=== PATIENT | female | born 1990 | race Caucasian/White ===

== ENCOUNTER 2020-01-07 12:05 | Outpatient (CLI) | payer OTHER, SELFPAY ==
[2020-01-07 12:17] VITALS: BMI 31.1
[2020-01-07 13:16] LABS: ROM Internal Control Test YES-OK TO RESULT pt. (Internal QC); ROM Patient Test Negative (Negative)
[2020-01-07 13:56] VITALS: BP 119/64; PULSE 100
--- NOTE | 2020-01-07 16:28 | OB.TRI.NOTE ---
History of Present Illness Was patient seen by the physician?: No Reason For Visit: RULE OUT LABOR Date of Service: 01/07/20 Final SANAM: 01/09/20 Gestational age: 39 Weeks and 5 Days Allergies grey Allergy (Verified 01/07/20 12:19) Hives Penicillins Allergy (Verified 01/07/20 12:18) Hives amoxicillin Adverse Reaction (Verified 01/07/20 12:19) Hives Laboratory Studies: Laboratory Tests 01/07/20 Range/Units 12:40 Vag Amniotic Fld Detect Negative (Negative) Physical Exam Vitals: Vital Signs Pulse BP 100 119/64 01/07/20 13:56 01/07/20 13:56 NST - FHR Rate Baby A Baseline: 125 Variability:: Moderate Accelerations:: 15 x 15 NST Reactive:: Yes Uterine Activity:: quiet Impression/Plan Reactive NST for false labor
== END 2020-01-07 13:57 | disposition home or self-care (01) ==
LOC: WPOUT 12:09 → OBT 12:10
PROVIDERS: PCP Otolaryngology; Visit Provider Obstetrics & Gynecology
DX: O47.1 False labor at or after 37 completed weeks of gestation (principal); Z3A.39 39 weeks gestation of pregnancy
CPT/HCPCS: 59025; 59050; 84112; 99218; G0378

== ENCOUNTER → 2020-01-10 10:17 | Outpatient (CLI) | payer OTHER, SELFPAY ==
[2020-01-07 12:17] VITALS: BMI 31.1
== END ==
PROVIDERS: PCP Otolaryngology; Referring Provider Advanced Practice Midwife; Visit Provider Advanced Practice Midwife
DX: Z11.59 Encounter for screening for other viral diseases (principal)
CPT/HCPCS: 87635; C9803; U0003

== ENCOUNTER 2020-01-16 07:00 | Inpatient (IN) | payer OTHER, SELFPAY ==
[2020-01-16] VITALS (54 sets, daily range): BP systolic 82–127; BP diastolic 49–72; PULSE 75–108; TEMP 36.4–37.6; O2SAT 96–100; BMI 31.8
--- NOTE | 2020-01-16 07:23 | PCM.HP.OB ---
- Problem List (1) 41 weeks gestation of Status: Acute (2) Primiparity Status: Acute (3) Positive GBS test Status: Acute (4) Rh negative state in antepartum period Status: Acute History Date of Admission: 01/16/20 Final SANAM: 01/09/20 Gestational age: 41 Weeks and 0 Days History of this : This is a 29 year-old, G 1, P 0, at 41 weeks gestational age who is admitted for induction of labor given 41 wk gestational age. Allergies grey Allergy (Verified 01/07/20 12:19) Hives Penicillins Allergy (Verified 01/07/20 12:18) Hives amoxicillin Adverse Reaction (Verified 01/07/20 12:19) Hives Home Medications: Home Medications 105/Iron/Folic AC/Dha tab PO DAILY 01/07/20 Smoking Status: Never smoker Alcohol: None Number of Fetus(es): 1 History Past Pregnancies: Past Pregnancies Delivery Date Name GA/ Weeks Outcome Route Wt Infant Sex Labor Length Anesthesia Delivery Location Provider FOB Physical Exam General: Alert, No apparent distress HEENT: Atraumatic Abdomen: Soft, Gravid Extremities:: No edema Neurological: Neuro grossly intact DEVELOPMENT CHEMIST: Normal external genitalia Estimated gestational size: Appropriate for gestational size Presentation: Cephalic Cervix Dilation (cm): 4 - per exam in office Assessment/Plan All Active Problems 41 weeks gestation of (Acute) Primiparity (Acute) Positive GBS test (Acute) Rh negative state in antepartum period (Acute) This is a 29 year-old, G 1, P 0, at 41 weeks gestational age who presents for scheduled IOL for 41 wk gestation. - Routine intrapartum care - Pitocin - Epidural PRN - GBS positive, Vancomycin given sensitivities - Adequate pelvis and EFW expected to be < 4500 g, anticipate
[2020-01-16] MEDS: Lactated Ringers 1,000 ML 50 ML IV (07:50)
[2020-01-16] MEDS: Oxytocin 30 units/NS 500 ml 30 UNITS/500 ML IV.SOLN IV (08:00)
[2020-01-16 08:12] LABS: Absolute Lymphocyte Count 1.51 X10^3/uL (0.83-4.51); Absolute Neutrophil Count 6.4 X10^3/uL (2.0-7.7); Basophil# 0.02 X10^3/uL; Basophil% 0.2 % (0-1); Eosinophil# 0.09 X10^3/uL; Eosinophils% 1.1 % (0-5); Hematocrit 35.1 % (37-47); Lymphocyte # 1.51 X10^3/ul (4.0); Lymphocyte % 17.8 % (19-41); Mean Corp Hgb Conc 34.2 g/dL (32-36); Mean Corpuscular Hgb 32.3 pg (27.0-32.0); Mean Corpuscular Volume 94.4 fL (81-99); Mean Platelet Vol. 11.9 fl (6.2-12.0); Monocyte# 0.37 X10^3/uL; Monocyte% 4.4 % (0-10); NRBC Flagged by Analyzer 0 % (0-5); Neutrophil # 6.36 X10^3/uL (2.7-7.7); Neutrophil % 75.2 % (47-70); Platelet Count 139 K/mm3 (150-450); RBC Distribution Width CV 13.3 % (11.6-14.6); RBC Distribution Width SD 45.4 fl (35.1-43.9); Red Blood Count 3.72 M/mm3 (4.2-5.4); White Blood Count 8.5 K/mm3 (4.4-11.0)
[2020-01-16 09:04] LABS: Anion Gap 7 (5-15); BUN 8 mg/dL (7-18); BUN/Creat Ratio 13.7 RATIO (10-20); Calcium,Total 8.8 mg/dL (8.5-10.1); Chloride 110 mmol/L (98-107); Creatinine, Serum 0.58 mg/dL (0.55-1.02); EST Glomerular Filtration Rate 131 mL/min (>60); Est Glom Filt Rate - Afr Amer 159 mL/min (>60); Estimated Creatinine Clearance 120.52 ml/min; Glucose 114 mg/dL (74-106); Potassium 3.3 mmol/L (3.5-5.1); Sodium Level 139 mmol/L (136-145)
[2020-01-16] MEDS: DiphenhydrAMINE 25 MG Capsule 50 MG PO (10:35)
[2020-01-16] MEDS: Lactated Ringers 500 ML 999 ML IV ×2 (11:10→12:33)
[2020-01-16] MEDS: fentaNYL-bupivacaine (epidural) 100 ML BAG EPIDURAL ×2 (12:05→16:32)
--- NOTE | 2020-01-16 12:54 | PCM.PN.BLA ---
Progress Note Pt comfortable with epidural. Cvx /-2, head well applied. AROM performed in usual fashion with return of clear fluid. Category 1 tracing STROKE Vital Signs/Narrative: Vital Signs Temp Pulse BP Pulse Ox 01/16/20 12:52 98.4 F 01/16/20 12:38 96 91/53 L 01/16/20 12:34 98 94/55 L 01/16/20 12:33 97 98 01/16/20 12:29 88 82/49 L 01/16/20 12:28 100 84/51 L 99 01/16/20 12:23 98 90/52 L 99 01/16/20 12:20 90 92/53 L 01/16/20 12:18 87 98 01/16/20 12:15 90 93/51 L 01/16/20 12:13 97 98 01/16/20 12:09 100 95/52 L 01/16/20 12:08 98 99 01/16/20 12:04 100 99/56 L 01/16/20 12:03 99 98 01/16/20 12:00 85 97/58 L 01/16/20 11:58 84 99 01/16/20 11:55 99.1 F 01/16/20 11:54 82 107/60 01/16/20 11:53 98 01/16/20 11:48 90 97 01/16/20 11:00 99.7 F H 75 108/65 01/16/20 09:29 99.1 F 94 103/56 L
[2020-01-16] MEDS: Ondansetron 4 MG/2 ML Vial IV (16:43)
[2020-01-16] MEDS: 0.9% Saline Lock 10 ML Syringe IV ×2 (16:44→18:55)
[2020-01-16] MEDS: proCHLORPERazine 10 MG/2 ML Vial IV (18:55)
[2020-01-16] MEDS: Oxytocin 30 units/NS 500 ml 30 UNITS/500 ML IV.SOLN 334 UNITS IV (22:02)
--- NOTE | 2020-01-16 22:26 | PCM.OPRPT ---
Problem List (1) 41 weeks gestation of Status: Acute (2) Primiparity Status: Acute (3) Positive GBS test Status: Acute (4) Rh negative state in antepartum period Status: Acute Report of Operation Date of Procedure: 01/16/20 Pre-Operative Diagnosis: 41 week gestation, primiparous patient Post-Operative Diagnosis: As above Surgery/Procedure Performed:: Description of Surgical Findings:: Infant in occiput anterior position. Thick meconium present at time of delivery. Intact and normal-appearing placenta with three-vessel cord. Type of Anesthesia:: Epidural Special Medications: None Specimen's removed: Placenta Drains: Stanley Estimated Blood Loss (mL): 250 Description of Procedure: Patient complete and pushing. Head of infant delivered in occiput anterior position followed by anterior shoulder, posterior shoulder, body of infant without any force or delay. Viable female infant delivered atraumatically and placed on maternal abdomen. The cord was clamped and cut immediately by the father of the baby. Cord blood was obtained. The placenta delivered spontaneously and was noted to be normal and intact with a three-vessel cord. The uterus was explored x1. A second-degree perineal laceration was repaired with 3-0 Vicryl in usual fashion. A right labial laceration was repaired with 3-0 Vicryl as well. Fundus was firm and bleeding hemostatic. Instrument, sponge, needle counts were correct. Vaginal sweep was performed. Grafts/Implants Used: None - Complications None - Admit VTE Documentation VTE Present on Admission: No VTE Mechan Device Prophylaxis: None VTE Pharm Prophylaxis ordered?: No Vaginal Delivery Maternal Presentation: Medically Indicated Induction Method of Induction: Pitocin, Amniotomy Medical Reason for Induction: Post term Amniotic Membrane Rupture Type: Artificial Amniotic Fluid Description: Clear - at time of AROM, Thick meconium - At time of delivery Surgery/ Procedure Performed: Spontaneous Vaginal Delivery Type of Anesthesia: Epidural Presentation: Vertex Placental Delivery Description: Spontaneous Cord Entanglement: None A gender: Female (1 minute): 8 (5 minute): 8 Episiotomy Description: None Laceration: 2nd degree Medications given after delivery: IV Pitocin Complications: None
[2020-01-17] VITALS (9 sets, daily range): BP systolic 99–127; BP diastolic 68–71; PULSE 96–117; RESP 16; TEMP 36.4–36.8; O2SAT 98
[2020-01-17] MEDS: Acetaminophen 500 MG Tablet 1000 MG PO ×2 (00:35→08:45)
[2020-01-17] MEDS: Ibuprofen 600 MG Tablet PO (04:43)
--- NOTE | 2020-01-17 08:18 | PN.OBGYN_ITS ---
Patient Problems: Active and Suspected Problems 41 weeks gestation of (Acute) Primiparity (Acute) Positive GBS test (Acute) Rh negative state in antepartum period (Acute) Subjective: Patient seen at bedside. Stated was able to get sleep last night. Denies any pain. Ambulating and voiding without difficulty. Pumping due to infant being at [facility] main. Patient requesting discharge as soon as possible to be with daughter. - Physical Exam Vitals/I&O's: Vital Signs Temp Pulse Resp BP Pulse Ox 97.9 F 115 H 16 127/69 H 97 01/17/20 04:01 01/17/20 04:01 01/17/20 04:00 01/17/20 04:01 01/16/20 23:17 Oxygen Delivery Method Room Air Weight: 179 lb 10.828 oz Body Mass Index (BMI) 31.8 Intake and Output for Last 24 Hours 01/15/20 01/16/20 01/17/20 23:59 23:59 23:59 Intake Total 4594.03 / 4594.03 333 / 333 Output Total 900 / 900 Balance 3694.03 / 3694.03 333 / 333 General: Alert, Oriented x3, Cooperative Oral: Moist Mucosa Lungs: Normal air movement Cardiovascular: Regular rate Abdomen: Soft, Non Tender, Non-Distended, Passing Flatus Skin: No rashes Neurological: Cranial nerves II-XII grossly intact Psych/Mental Status: Normal Affect, Appropriate Laboratory Results 01/16/20 07:50: Blood Type O NEGATIVE, Antibody Screen NEGATIVE 01/16/20 08:15: Sodium 139, Potassium 3.3 L, Chloride 110 H, Carbon Dioxide 22.0, Anion Gap 7, BUN 8, Creatinine 0.58, Estim Creat Clear Calc 120.52, Est GFR (MDRD) Af Amer 159, Est GFR (MDRD) Non-Af 131, BUN/Creatinine Ratio 13.7, Glucose 114 H, Calcium 8.8 01/17/20 00:05: Screen NEGATIVE, Baby's Blood Type O POSITIVE, Baby's LINDA NEGATIVE Current Medications Acetaminophen (Tylenol) 1,000 mg PO Q8H PRN PRN PRN Reason: Pain Score 1-3/10 Last Admin: 01/17/20 00:35 Dose: 1,000 mg Documented by: Bisacodyl (Dulcolax) 10 mg RECTAL UD PRN PRN Reason: If no BM Dibucaine (Dibucaine) 1 applic TOPICAL TID PRN PRN; Protocol PRN Reason: Discomfort Hydrocortisone (Hytone) 1 applic TOPICAL TID PRN PRN; Protocol PRN Reason: Discomfort Ibuprofen (Motrin) 600 mg PO Q6H PRN PRN PRN Reason: Pain Score 1-3/10 Last Admin: 01/17/20 04:43 Dose: 600 mg Documented by: Methylergonovine Maleate (Methergine) 0.2 mg IM X1 PRN PRN Reason: Excess bleeding/uterine atony Ondansetron HCl (Zofran) 4 mg IV Q4H PRN PRN PRN Reason: Nausea Senna/Docusate Sodium (Senokot-S, Nicky-Colace) 1 - 2 tablet PO DAILY PRN PRN PRN Reason: Constipation Simethicone (Mylicon) 80 mg PO PCHS PRN PRN Reason: Indigestion/Stomach pain Sodium Chloride () 5 - 15 ml IV UD PRN PRN Reason: SALINE FLUSH Medical Necessity - Tobacco Use Smoking Status: Never smoker Assessment/Plan All Active Problems 41 weeks gestation of (Acute) Primiparity (Acute) Positive GBS test (Acute) Rh negative state in antepartum period (Acute) PPD #1 - 2nd degree laceration Routine care Pain controlled Discharge home
--- NOTE | 2020-01-17 08:21 | DCINST_ITS ---
Discharge Diet: No Restrictions Discharge Activity: Return to Normal Activity May resume sexual activity in: 6-8 weeks Additional Instructions: If you experience any of the following, contact your healthcare provider. * Bleeding that soaks a pad every hour for 2 hours * Fever 100.4 or higher * Unrelieved incision or abdominal pain * Swelling, redness, discharge or bleeding from your incision or episiotomy site * Your incision begins to separate * Problems urinating (including inability to urinate or burning while urinating). * Visual changes * Severe headache * Flu-like symptoms * Pain or redness in one of both of your breasts * Pain, warmth, tenderness or swelling in your legs, especially the calf area * Frequent nausea and vomiting * Symptoms of depression or anxiety If you experience any of the following, call 911 or go to the nearest Emergency Room. * Chest pain * Problems breathing * Seizure activity * Partial or complete paralysis of a body part, slurred speech, weakness or drooping of the face, or a sudden inability to walk or hold your balance Allergies/Adverse Reactions: Allergies grey Allergy (Verified 01/07/20 12:19) Hives Penicillins Allergy (Verified 01/07/20 12:18) Hives amoxicillin Adverse Reaction (Verified 01/07/20 12:19) Hives Medications to take at Discharge 105/Iron/Folic AC/Dha 1 tab PO DAILY 01/07/20 Please Follow Up With: Katie Law CNM When: 2 weeks virtual/ 6 weeks in office Primary Care Physician: Sánchez Davalos MD [Primary Care Provider] - Test Results: Test results from this visit will be discussed in further detail at your follow- up appointment, if applicable. Proposed Discharge Date: 01/17/20
--- NOTE | 2020-01-17 08:21 | PCM.DCVAG ---
Discharge Diet: No Restrictions Discharge Activity: Return to Normal Activity May resume sexual activity in: 6-8 weeks Additional Instructions: If you experience any of the following, contact your healthcare provider. Bleeding that soaks a pad every hour for 2 hours Fever 100.4 or higher Unrelieved incision or abdominal pain Swelling, redness, discharge or bleeding from your incision or episiotomy site Your incision begins to separate Problems urinating (including inability to urinate or burning while urinating). Visual changes Severe headache Flu-like symptoms Pain or redness in one of both of your breasts Pain, warmth, tenderness or swelling in your legs, especially the calf area Frequent nausea and vomiting Symptoms of depression or anxiety If you experience any of the following, call 911 or go to the nearest Emergency Room. Chest pain Problems breathing Seizure activity Partial or complete paralysis of a body part, slurred speech, weakness or drooping of the face, or a sudden inability to walk or hold your balance Allergies/Adverse Reactions: Allergies grey Allergy (Verified 01/07/20 12:19) Hives Penicillins Allergy (Verified 01/07/20 12:18) Hives amoxicillin Adverse Reaction (Verified 01/07/20 12:19) Hives Medications to take at Discharge 105/Iron/Folic AC/Dha 1 tab PO DAILY 01/07/20 Please Follow Up With: Katie Law CNM When: 2 weeks virtual/ 6 weeks in office Primary Care Physician: Sánchez Davalos MD [Primary Care Provider] - Test Results: Test results from this visit will be discussed in further detail at your follow-up appointment, if applicable. Proposed Discharge Date: 01/17/20
== END 2020-01-17 09:09 | disposition home or self-care (01) | DRG 806 ==
PROVIDERS: Advanced Practice Midwife; Admitting Provider Obstetrics & Gynecology; PCP Otolaryngology; Referring Provider Obstetrics & Gynecology; Visit Provider Obstetrics & Gynecology
DX: O48.0 Post-term pregnancy (principal); O36.0130 Maternal care for anti-D [Rh] antibodies, third trimester, not applicable or unspecified; Z37.0 Single live birth; O77.0 Labor and delivery complicated by meconium in amniotic fluid; O99.824 Streptococcus B carrier state complicating childbirth; O70.1 Second degree perineal laceration during delivery; Z3A.41 41 weeks gestation of pregnancy
CPT/HCPCS: 59025; 59050; 80048; 85025; 85461; 86850; 86900; 86901; 90384; 99218; J7040; J7120; A4216; G0378; J2405; J2790

== ENCOUNTER → 2020-09-25 | Outpatient (CLI) | payer OTHER, SELFPAY ==
[2020-09-25 14:06] VITALS: BMI 27.3
[2020-09-25 18:44] LABS: Amphetamine Urine VISTA NEGATIVE (<1000 ng/mL); Barbiturate Urine VISTA NEGATIVE (< 200 ng/mL); Benzodiazepine Urine VISTA NEGATIVE (< 200 ng/mL); Cocaine Urine VISTA NEGATIVE (< 300 ng/mL); Ecstacy Urine VISTA NEGATIVE (< 500 ng/mL); Methadone Urine VISTA NEGATIVE (< 300 ng/mL); PCP Urine VISTA NEGATIVE (< 25 ng/mL); THC Urine VISTA NEGATIVE (< 50 ng/mL); Vista UDS pH Range 6
== END | disposition home or self-care (01) ==
PROVIDERS: PCP Otolaryngology; Referring Provider Obstetrics & Gynecology; Visit Provider Obstetrics & Gynecology
DX: Z34.80 Encounter for supervision of other normal pregnancy, unspecified trimester (principal)
CPT/HCPCS: 80307; 87086; 87088

== ENCOUNTER → 2020-10-24 11:06 | Outpatient (CLI) | payer OTHER, SELFPAY ==
[2020-10-24 10:36] VITALS: BMI 27.3
[2020-10-24 11:26] LABS: Absolute Lymphocyte Count 1.55 X10^3/uL (0.83-4.51); Absolute Neutrophil Count 4.8 X10^3/uL (2.0-7.7); Basophil# 0.02 X10^3/uL; Basophil% 0.3 % (0-1); Eosinophil# 0.06 X10^3/uL; Eosinophils% 0.9 % (0-5); Hematocrit 36.3 % (37-47); Hemoglobin 12.7 g/dL (12.0-15.0); Lymphocyte # 1.55 X10^3/ul (0.83-4.51); Mean Corpuscular Hgb 31.8 pg (27.0-32.0); Mean Platelet Vol. 10.6 fl (6.2-12.0); Monocyte# 0.31 X10^3/uL; Monocyte% 4.6 % (0-10); NRBC Flagged by Analyzer 0 % (0-5); Neutrophil # 4.76 X10^3/uL (2.7-7.7); Neutrophil % 70.8 % (47-70); Platelet Count 175 K/mm3 (150-450); RBC Distribution Width CV 12.9 % (11.6-14.6); RBC Distribution Width SD 42.6 fl (35.1-43.9); Red Blood Count 3.99 M/mm3 (4.2-5.4); White Blood Count 6.7 K/mm3 (4.4-11.0)
[2020-10-24 12:29] LABS: HIV - WCH Non-Reactive (Nonreactive); Hepatitis B Surface Antigen Non-Reactive (Nonreactive); Hepatitis C Antibody Non-Reactive (Nonreactive); Rubella IgG Reactive (Nonreactive); Syphilis Antibodies Non-reactive
[2020-10-24 16:17] LABS: Chlamydia Trachomatis by PCR Negative (Negative); Neisserai gonorrhoeae by PCR Negative (Negative); Probe Check PASS; Sample Adequacy Control PASS; Specimen Processing Control PASS
== END ==
PROVIDERS: PCP Otolaryngology; Referring Provider Obstetrics & Gynecology; Visit Provider Obstetrics & Gynecology
DX: Z34.80 Encounter for supervision of other normal pregnancy, unspecified trimester (principal)
CPT/HCPCS: 36415; 85025; 86703; 86762; 86780; 86803; 86850; 86900; 86901; 87340; 87491; 87591

== ENCOUNTER → 2021-01-02 14:18 | Outpatient (CLI) | payer OTHER, SELFPAY ==
[2021-01-02 16:09] LABS: Absolute Lymphocyte Count 1.42 X10^3/uL (0.83-4.51); Basophil# 0.02 X10^3/uL; Basophil% 0.3 % (0-1); Eosinophil# 0.08 X10^3/uL; Hematocrit 35.6 % (37-47); Lymphocyte # 1.42 X10^3/ul (0.83-4.51); Lymphocyte % 17.8 % (19-41); Mean Corp Hgb Conc 33.7 g/dL (32-36); Mean Corpuscular Hgb 31.8 pg (27.0-32.0); Mean Corpuscular Volume 94.4 fL (81-99); Mean Platelet Vol. 10.7 fl (6.2-12.0); Monocyte# 0.38 X10^3/uL; Monocyte% 4.8 % (0-10); NRBC Flagged by Analyzer 0 % (0-5); Neutrophil # 6.02 X10^3/uL (2.7-7.7); Neutrophil % 75.3 % (47-70); Platelet Count 203 K/mm3 (150-450); RBC Distribution Width CV 13.2 % (11.6-14.6); RBC Distribution Width SD 45.7 fl (35.1-43.9); Red Blood Count 3.77 M/mm3 (4.2-5.4)
[2021-01-02 16:40] LABS: Glucose Challenge Gest 1H 50g 103 mg/dL (70-140)
== END ==
PROVIDERS: PCP Otolaryngology; Visit Provider Obstetrics & Gynecology
DX: Z13.1 Encounter for screening for diabetes mellitus (principal); Z34.80 Encounter for supervision of other normal pregnancy, unspecified trimester
CPT/HCPCS: 36415; 82950; 85025

== ENCOUNTER → 2021-01-16 11:23 | Outpatient (CLI) | payer OTHER, SELFPAY | PROVIDERS: PCP Otolaryngology; Referring Provider Obstetrics & Gynecology; Visit Provider Obstetrics & Gynecology | DX: O26.891 Other specified pregnancy related conditions, first trimester (principal); Z67.91 Unspecified blood type, Rh negative; Z3A.00 Weeks of gestation of pregnancy not specified | CPT/HCPCS: 36415; 86850; 86900; 86901 ==

== ENCOUNTER → 2021-03-12 | Outpatient (CLI) | payer OTHER, SELFPAY | END | disposition home or self-care (01) | LOC: LABSPEC 16:00 | PROVIDERS: PCP Otolaryngology; Visit Provider Nurse Practitioner Women's Health | DX: Z36.85 Encounter for antenatal screening for Streptococcus B (principal) | CPT/HCPCS: 87081 ==

== ENCOUNTER → 2021-04-03 10:19 | Outpatient (CLI) | payer OTHER, SELFPAY ==
--- NOTE | 2021-04-03 10:20 | US_ITS ---
HISTORY: uterine date size discrepancy EXAMINATION: US OB Limited 1 Or More Fetus TECHNIQUE: Transabdominal pelvic ultrasound was performed. COMPARISON: None LMP: Unknown. Beta-hCG: Unknown. Provided EGA: 39 weeks 6 days correlating with April 04, 2021 delivery date FINDINGS: Single live intrauterine with current cephalic presentation.. Cervix is obscured by cranial shadow. Placenta posterior without evidence of abruption or previa. heart rate 125 bpm. CIRILO 14.6 cm. Biparietal diameter 9.0 cm 36 weeks 3 days Head circumference 33.4 cm 38 weeks 0 days Abdominal circumference 34.5 cm 38 weeks 2 days Femur length 7.2 cm 37 weeks 0 days Composite ultrasound age 37 weeks 3 days correlating with 04/21/2021 delivery date Estimated weight 3003 and 31 g 500 g. This is 29th percentile compared to prior dating. US/OB Limited With Biometrics IMPRESSION: Single live intrauterine with normal heart rate and current cephalic presentation Gestational age by biometry is low by 2 weeks 3 days but concordant for third trimester compared with provided gestational age. Estimated weight 3331g 500 g. at 0013 Reported and signed by: German Conteh MD Electronically Signed: German Conteh MD at 0:12 EST Tel , Service support ,
[2021-04-03 11:46] LABS: Probe Check PASS; Specimen Processing Control PASS
== END ==
PROVIDERS: Referring Provider Obstetrics & Gynecology; Visit Provider Obstetrics & Gynecology
DX: O26.843 Uterine size-date discrepancy, third trimester (principal); Z3A.39 39 weeks gestation of pregnancy
CPT/HCPCS: 76816; 87635; U0005; U0003

== ENCOUNTER → 2021-04-08 | Outpatient (CLI) | payer OTHER, SELFPAY ==
[2021-04-08 12:12] LABS: ROM Internal Control Test YES-OK TO RESULT pt. (Internal QC); ROM Patient Test Negative (Negative)
== END | disposition home or self-care (01) ==
PROVIDERS: Referring Provider Obstetrics & Gynecology; Visit Provider Obstetrics & Gynecology
DX: O26.899 Other specified pregnancy related conditions, unspecified trimester (principal); N89.8 Other specified noninflammatory disorders of vagina; Z3A.00 Weeks of gestation of pregnancy not specified
CPT/HCPCS: 84112

== ENCOUNTER 2021-04-09 11:50 | Inpatient (IN) | payer OTHER, SELFPAY ==
[2021-04-09] VITALS (27 sets, daily range): BP systolic 94–120; BP diastolic 50–73; PULSE 83–123; RESP 18; TEMP 36.2–37.4; O2SAT 97–100; BMI 29.7
--- NOTE | 2021-04-09 12:42 | HP.PCM_ITS ---
History and Physical Date of Admission: 04/09/21 Vital Signs 04/09/21 09:40 Height 5 ft 3 in Weight: 171 lb BMI 30.2 BP 122/64 H Intake Visit Reasons: 41wk ob *will have child Chief Complaint: est ob, post dates Special Procedures Technologist Required: No Is patient in pain?: No Allergies grey Allergy (Verified 04/09/21 09:40) Hives Penicillins Allergy (Verified 04/09/21 09:40) Hives amoxicillin Adverse Reaction (Verified 04/09/21 09:40) Hives Medications 105/Iron/Folic AC/Dha 1 tab PO DAILY 01/07/20 [History Confirmed 04/09/21] Last Menstral Period: 06/28/20 Zika: Zika virus screening: Negative : No PFSH PFSH Surgical History H/O wisdom tooth extraction Hx of tonsillectomy Family History Grandfather Heart disease Diabetes Grandmother Breast cancer Grandmother Diabetes Grandfather Myocardial infarction Social History adopted: No household members: family housing: house number of children: 1 current occupational status: employed 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 Date Name GA/Weeks Outcome Route Bth Weight Gen Labor Lgth Anesthesia Del Locatn Provider FOB 01/16/20 [place] 41 live - full term 6lbs 9oz Female 12 hours epidural [facility] Dr. Franklin Carlos Delivery Date: 01/16/20 IoL post dates; thick meconium; 2nd degree laceration Vidhya Camacho HPI 41wk ob *will have child Details: CÉSAR ORTIZ is a 31 year old who presents for routine OB visit. OB Visit SANAM Calculator Estimated Delivery Date Method Current WG Current Estimate 04/04/21 LMP (Certain) 40w 5d Expected Delivery Route/Plan prefers exp management until 42 Labor Preferences- labor support person: Terrance labor intervention preferences: [] pain management options preferred: epidural cut cord/dad catch: yes : yes PP control planned: IUD discussed possible routes of delivery and associated risks: [] special requests: [] Specific Issue/Plans covid status: discussed. counseled regarding risk of covid in vs vaccination and declined vaccination flu vaccine: declined tdap vaccine: considering rhogam: given 28 weeks LARC form signed: declined movement and labor precautions reviewed. Problem list reviewed and updated with the most current plan of care details and appropriate orders placed. Relevant counseling for the gestational age provided. Continue routine care and follow up unless otherwise noted in visit notes/problem list details Initial Weight: 154 lb Date EGA Weight BP Urine Prot Glucose FHR FuHt Pres Dilation Effaced St Visit Note 09/25/20 12w 5d 154 lb (+0 oz) 160 GP - CRL 52mm consistent with LMP. 10/24/20 16w 6d 157 lb (+3 lb) 120/80 Negative Negative 145 GP - no cramping or bleeding. Anatomy scan ordered. Will have NOB labs drawn today. 11/27/20 21w 5d 159 lb 4 oz (+5 lb 4 oz) 110/72 Negative Negative 140 GP - no LOF, VB, dFM, ctx. Denies complaints. 01/02/21 26w 6d 165 lb (+11 lb) 110/76 Negative Negative 145 27 GP - no LOF, VB, DFM, ctx. GCT done today. Will need T&S at 28w and rhogam. 01/16/21 28w 6d 164 lb (+10 lb) 112/70 Negative Negative 145 29 Sm- no vb lof good fm no regular ctxc 01/30/21 30w 6d 167 lb (+13 lb) 110/72 130 30 GP - no LOF, VB, dFM, ctx. Denies complaints. 02/09/21 32w 2d 166 lb (+12 lb) 120/72 130 32 Sm- no vb lof good fm nor egular ctx 02/26/21 34w 5d 168 lb (+14 lb) 114/72 Negative Negative 130 34 SM- no vb lof good fm no reuglar ctx 03/12/21 36w 5d 169 lb 8 oz (+15 lb 8 oz) 140/80 128/70 Negative Negative 133 36 Cephalic 2 40 -3 MH-No Vb, LOF. Good FM. GBS. 03/20/21 37w 6d 167 lb (+13 lb) 120/82 Negative Negative 135 38 Cephalic SM- no vb lof good fm nor egular ctx 03/27/21 38w 6d 169 lb (+15 lb) 130/80 Negative Negative 135 38 Cephalic Sm- no vb lof good fm no reuglar ctx 04/03/21 39w 6d 168 lb 8 oz (+14 lb 8 oz) 122/84 Negative Negative 135 37 Cephalic 4 80 -1 SM- no vb lof good fm irregular ctx recommend rule out labor and growth us 04/08/21 40w 4d 172 lb 4 oz (+18 lb 4 oz) 130/88 Negative Negative 120 38 Cephalic JV- pt is being seen for leaking fluid, but unsure if it's urine. She leaks urine every night and wears a pad however this am the pad did not smell like urine. She stopped leaking since then. Rom plus collected, no pooling present and CIRILO is 11cm. 04/09/21 40w 5d 171 lb (+17 lb) 122/64 Negative Negative 120 39 Cephalic 5 80 -1 Sm- no vb Sm- no vb lof good fm no regular ctx Sm- no vb lof good fm irregular ctx discussed exp management, nst today, nl growth last week nl cirilo yesterday ACOG First Trimester First Trimester: Desire for , Alcohol, Tobacco Cessation, Illicit/Recreational Drug/Substance Use, Intimate Partner Violence, Barriers to care, Unstable Housing, Communication Barriers, Environmental/Work Hazards, Anticipated Course of Care, Toxoplasmosis Precations, Use of Any medications, Sexual activity, Exercise, Dental Care, Sauna/Hot tub use, Seat Belt use, Childbirth classes/Hospital facilities, , Travel, Indications for Ultrasound and Screening for Aneuploidy Second Trimester Second Trimester: Signs and Symptoms of Labor, Selecting a care provider, Reproductive Life Planning & Contreception, Care Planning, Tobacco Cessation, Depression/Anxiety and Intimate Partner Violence Third Trimester Third Trimester: Pain Management Plans, Labor support person(s), Immediate Larc, Movement Monitoring and Feeding Yes ; Discussed Trial of Labor after Counseling and Discussed Circumcision preference Diagnostics Diagnostics Diagnostics: Blood Type O NEGATIVE Antibody Screen NEGATIVE Details: HIV: Urine Culture: Sequential Screen: NIPT Screen: ROS Const Reports system reviewed and no additional complaints, except as documented Card Reports system reviewed and no additional complaints, except as documented Resp Reports system reviewed and no additional complaints, except as documented GI Reports system reviewed and no additional complaints, except as documented and Reports nausea Reports system reviewed and no additional complaints, except as documented Musc Reports system reviewed and no additional complaints, except as documented Exam Const General: cooperative, healthy appearing, comfortable and anxious HENMT Head: normal to inspection Nose: external nose normal Face and sinus: normal facial exam Neck Neck: normal visual inspection, full ROM and no lymphadenopathy Thyroid: thyroid normal Chest Chest palpation & inspection: normal inspection of the chest Resp Effort & Inspection: normal respiratory effort GI Inspection: normal to inspection Palpation: soft and other (gravid uterus) Other: vertex and appropriate size for gestational age Other: Cervical Exam: Extrem General: pedal edema Results POC Urinalysis 2 Dip (Clinic) Office Urine Glucose Negative Last Edit by Kenia Valencia on 04/09/21 09:45 Office Urine Protein Negative Last Edit by Kenia Valencia on 04/09/21 09:45 Coding Level of Care Code OB Routine Diagnoses Lab test negative for COVID-19 virus Z20.822 Short interval between pregnancies complicating , antepartum O09.899 Rh negative status during O26.891; Z67.91 Trimester: first trimester Z3A.40 Weeks of gestation: 40 weeks Supervision of other normal Z34.80 Active labor at term Assessment and Plan Assessment and Plan (1) Lab test negative for COVID-19 virus: Status: Acute (2) Short interval between pregnancies complicating , antepartum: Status: Acute Comment: dght born 01[birth year]2020 Plan - Dr. Niesha Montero MD: Patient presents IAL, plan expectant management for , pitocin/AROM PRN if needed. Pain management: plans epidural. GBS neg. Management of any complications: none I have reviewed the [facility] and made any clinically relevant updates. (3) Rh negative status during : Status: Acute Qualifiers: Trimester: first trimester Qualified Code(s): O26.891 - Other specified related conditions, first trimester; Z67.91 - Unspecified blood type, Rh negative Comment: O neg- Rhogam PRN; 28 weeks and PP (4) : Status: Acute Qualifiers: Weeks of gestation: 40 weeks Qualified Code(s): Z3A.40 - 40 weeks gestation of Comment: Neg. GBS, declines carrier and genetic, nl anatomy (5) Supervision of other normal : Status: Acute Comment: PRR SANAM: 04/04/2021 guilherme Bain PC: [place] Spouse: Terrance (6) Active labor at term: Status: Acute Comment: admitting IAL to l and d Plan Details Other Orders: Orders: POC Urinalysis 2 Dip (Clinic) Today UPDATE- I have seen the patient and performed any clinically relevant updates to the history and physical exam. Niesha Montero MD
[2021-04-09] MEDS: Lactated Ringers 1,000 ML 50 ML IV (12:45)
[2021-04-09] MEDS: Lactated Ringers 500 ML 999 ML IV (12:54)
[2021-04-09 13:01] LABS: Absolute Lymphocyte Count 1.51 X10^3/uL (0.83-4.51); Absolute Neutrophil Count 6.8 X10^3/uL (2.0-7.7); Basophil# 0.02 X10^3/uL; Basophil% 0.2 % (0-1); Eosinophil# 0.07 X10^3/uL; Eosinophils% 0.8 % (0-5); Hematocrit 34.3 % (37-47); Hemoglobin 11.7 g/dL (12.0-15.0); Lymphocyte # 1.51 X10^3/ul (0.83-4.51); Lymphocyte % 17.3 % (19-41); Mean Corp Hgb Conc 34.1 g/dL (32-36); Mean Corpuscular Hgb 30.9 pg (27.0-32.0); Mean Corpuscular Volume 90.5 fL (81-99); Mean Platelet Vol. 10.9 fl (6.2-12.0); Monocyte# 0.31 X10^3/uL; Monocyte% 3.5 % (0-10); NRBC Flagged by Analyzer 0 % (0-5); Neutrophil # 6.78 X10^3/uL (2.7-7.7); Neutrophil % 77.6 % (47-70); Platelet Count 157 K/mm3 (150-450); RBC Distribution Width CV 13.7 % (11.6-14.6); RBC Distribution Width SD 45.3 fl (35.1-43.9); Red Blood Count 3.79 M/mm3 (4.2-5.4); White Blood Count 8.7 K/mm3 (4.4-11.0)
[2021-04-09] MEDS: fentaNYL-bupivacaine (epidural) 100 ML BAG EPIDURAL (14:31)
[2021-04-09] MEDS: Oxytocin 30 units/NS 500 ml 30 UNITS/500 ML IV.SOLN 334 UNITS IV (17:04)
--- NOTE | 2021-04-09 17:12 | EX.PCM.OBRPT ---
Maternal Data Information SANAM Calculator Estimated Delivery Date Method Current Current Estimate 04/04/21 LMP (Certain) 40w 6d Vaginal Delivery Operative Information Pre-Operative Diagnosis: IAL Post-Operative Diagnosis: same Surgery / Procedure Performed: Spontaneous Vaginal Delivery Type of Anesthesia: Epidural Special Medications: none Estimated Blood Loss: 100 Fluids Replaced: crystalloid Findings Description of Procedure: Patient began pushing and delivered the head in the ZABRINA presentation. The head was delivered atraumatically . The anterior and posterior shoulders delivered without complication followed by the rest of the and the infant was placed on the maternal abdomen. Delayed cord clamping was employed for approximately 60 seconds. Cord was clamped and cut and gentle traction was applied to the cord and the placenta delivered spontaneously immediately following it was noted to be intact with three-vessel cord. The perineum and vagina were inspected and noted to have no laceration. EBL was 100 cc. Patient and tolerated delivery well. Presentation: ZABRINA Amniotic Membrane Rupture Type: Artificial Amniotic Fluid Description: Clear Placental Delivery Description: Spontaneous Placenta Disposition: [facility] Cord Vessel Description: 3 Vessels Cord Entanglement: None Delayed Cord Clamping: Yes Post Vaginal Delivery Medications Given After Delivery: IV Pitocin Episiotomy Description: None Laceration: None Complication Complications: None Procedures Urinary/Genital [id number]: [id number] Vaginal Delivery [facility]
[2021-04-10] VITALS (8 sets, daily range): BP systolic 98–115; BP diastolic 50–74; PULSE 81–98; RESP 16; TEMP 36.6–36.8; O2SAT 98
--- NOTE | 2021-04-10 13:48 | PCM.DC ---
Discharge Instructions Diet Discharge Diet: No restrictions Activity Discharge Activity: Return to Normal Activity, May Not Drive (while taking narcotic pain medications.) and May Shower May resume sexual activity in: 4-6 weeks Dressing / Incision Call your doctor if your incision/area has: Continuous Slow Oozing, Sudden Increased Bleeding, Increased Pain/ Swelling, Increased Redness and Foul Smelling Discharge Follow Up Care Please Follow Up With: Niesha Montero MD When: Call [phone] to make an appointment with your doctor in 6 weeks. If you had elevated blood pressure or 4th degree laceration, you will need to be seen in 2 weeks. Test Results: Test results from this visit will be discussed in further detail at your follow-up appointment, if applicable. Discharge Plan Admission Admit Date/Time: 04/09/21 11:50 Attending Provider: Niesha Montero Primary Care Provider: Care Physician,Vanessa Primary Discharge Orders/Prescriptions Prescriptions: No Action 105/Iron/Folic AC/Dha tablet 1 tab PO DAILY RF: 0 Referrals / Follow Up: Care Physician,No Primary [Primary Care Provider] - Disposition Disposition (needs filled in before D/C Order can be placed): Home, Self Care
--- NOTE | 2021-04-10 13:49 | PCM.PN.OB ---
Subjective Subjective Patient doing well without complaints. Tolerating PO. Ambulating and voiding without difficulty. feeding well. Denies chest pain, shortness of breath, calf pain/swelling, fevers, chills, lightheadedness. Objective Data Objective Data Vital Signs: Vital Signs Temp Pulse Resp BP Pulse Ox 98.0 F 93 16 108/59 L 98 04/10/21 13:43 04/10/21 13:45 04/10/21 13:43 04/10/21 13:45 04/10/21 13:43 Oxygen Delivery Method Room Air Weight: 167 lb 12.348 oz Body Mass Index (BMI) 29.7 Intake & Output: Intake and Output for Last 24 Hours 04/08/21 04/09/21 04/10/21 23:59 23:59 23:59 Intake Total 1638.33 / 1638.33 Output Total 1500 / 1500 Balance 138.33 / 138.33 Lab / Micro Data Result Diagrams: 04/09/21 12:45 Labs: Laboratory Results - last 24 hr 04/09/21 12:45: Blood Type O NEGATIVE, Antibody Screen NEGATIVE 04/09/21 21:20: Screen NEGATIVE, Baby's Blood Type O POSITIVE, Baby's LINDA NEGATIVE ROS Constitutional Constitutional: Reports systems reviewed and no addt'l complaints, except as documented Cardiovascular Cardiovascular: Reports systems reviewed and no addt'l complaints, except as documented Respiratory/Chest Respiratory/Chest: Reports systems reviewed and no addt'l complaints, except as documented Gastrointestinal Gastrointestinal: Reports systems reviewed and no addt'l complaints, except as documented Physical Exam Const alert, oriented x3 and no apparent distress HEENT Head and Scalp: atraumatic Resp normal respiratory effort GI soft to palpation and non-tender Bimanual Exam - Vag & Uterus: uterus non-tender Uterus Palpation: uterus fundus firm (below Umbilicus) Assessment & Plan (1) Active labor at term: COMMENT: admitting IAL to l and d (2) Vaginal delivery: COMMENT: 40 sm boy morrell PLAN: s/p PPD # 1 1. routine post delivery care 2. breast feeding- support given 3. rh positive 4. rubella immune
== END 2021-04-10 18:50 | disposition home or self-care (01) | DRG 807 ==
PROVIDERS: Admitting Provider Obstetrics & Gynecology; Visit Provider Obstetrics & Gynecology
DX: O48.0 Post-term pregnancy (principal); Z37.0 Single live birth; O26.893 Other specified pregnancy related conditions, third trimester; Z67.41 Type O blood, Rh negative; Z3A.41 41 weeks gestation of pregnancy; Z87.59 Personal history of other complications of pregnancy, childbirth and the puerperium
CPT/HCPCS: 59025; 59050; 85025; 85461; 86850; 86900; 86901; 90384; 99218; J7120; G0378; J2790

== ENCOUNTER 2023-01-28 08:16 | Emergency (ER) | payer OTHER, SELFPAY ==
[2023-01-28 08:16] VITALS: BP 121/75; PULSE 88; RESP 16; TEMP 36.4; O2SAT 99; BMI 24.7
--- NOTE | 2023-01-28 08:30 | US_ITS ---
STUDY: FIRST TRIMESTER OBSTETRICAL ULTRASOUND REASON FOR EXAM: Female, 33 years old Vaginal bleeding, cramping 12 weeks gestation by d LMP: Unknown. TECHNIQUE: Transabdominal and Transvaginal TECHNICAL QUALITY: Adequate. PRIOR ULTRASOUND: None. FINDINGS: There is visualization of a single gestational sac in a normal intrauterine position. The mean sac diameter (MSD) measures 3.7 cm, indicating an estimated gestational age (EGA) of 9 weeks, 0 days. The gestational sac shape is irregular. There is no demonstrated yolk sac. The placenta is non-visualized. There is no demonstrated embryo ( pole). There is 3.5 x 2.2 cm complex hypoechoic mass within the gestational sac. The uterus measures 11.0 x 7.4 x 5.7 cm. There is no demonstrated uterine fibroid. The cervix is closed. The right ovary measures 2.8 x 2.2 x 0.9 cm. There is no right ovarian cyst. There is no visualized right adnexal mass or complex lesion. The left ovary is not visualized. There is no fluid in the cul de sac. US/Transvaginal w/Preg US IMPRESSION: No intrauterine gestation seen. Complex mass within the gestational sac with potential hematoma versus retained products of conception. Electronically Signed: Anderson Camp MD at 11:02 EDT ,
--- NOTE | 2023-01-28 08:32 | ED.VIS.FEGU ---
HPI HPI - Female History of Present Illness Chief Complaint: Vag Bld, Preg Informant: patient Pain Pain: Positive for Pelvic Pain Onset: Yesterday Context: Sudden Onset Timing: Intermittent Quality: Positive for Cramping Current Severity: Gone Maximum Severity: Moderate Worsened by: - (Nothing) Relieved by: - Bleeding Issue: Positive for Vaginal bleeding and Passing tissue; Negative for Passing clots Onset: Today Timing: Continuous Current Severity: Spotting Maximum Severity: Spotting Associated Symptoms Associated Symptoms: Positive for Frequency and Urgency; Negative for Dysuria or Hematuria Last known menstrual period: Nothing patient believes she is 12 weeks by dates Test: Positive Sexually: Positive for Active Control: No control P: 2 Ab: 1 Narrative Narrative: Patient is a 33-year-old G4, P2 AB 1 female with O- blood who presents with vaginal spotting. She had cramps yesterday. She had a miscarriage this past summer. She believes she is 12 weeks by dates. She contacted her security shift supervisor Dr. Kojo Salazar who recommended she come to the emergency department for RhoGAM and ultrasound. Patient denies any cardiopulmonary symptoms. Patient presently has no pain. She denies orthostatic symptoms. Prior similar symptoms: Yes Recent Illness/Hospitalization: No PFSH PFSH Home Medications NK 01/28/23 [History Last Taken Unknown] Allergy/AdvReac Type Severity Reaction Status Date / Time grey Allergy Hives Verified 09/23/21 10:19 Penicillins Allergy Hives Verified 09/23/21 10:19 amoxicillin AdvReac Hives Verified 09/23/21 10:19 Family History Grandfather Heart disease Diabetes Grandmother Breast cancer Grandmother Diabetes Grandfather Myocardial infarction Surgical History H/O wisdom tooth extraction Hx of tonsillectomy Social History adopted: No household members: family housing: house number of children: 1 current occupational status: employed 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 Smoking Status: Never smoker second hand exposure: No alcohol intake: current alcohol intake frequency: holidays/special occasions only substance use type: does not use seatbelt use: always do you feel safe at home: Yes additional social history: Judith De La Cruz 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 [employer] ROS ROS ED Constitutional Constitutional ED: Denies chills, fever(s), subjective or sweats Eyes Eyes: Denies blurry vision, change in vision or diplopia Cardiovascular Cardiovascular: Denies chest pain Respiratory/Chest Respiratory/Chest: Denies dyspnea or dyspnea on exertion Gastrointestinal Gastrointestinal: Denies abdominal pain, nausea or vomiting Genitourinary Genitourinary ED: Reports urinary frequency; Denies dysuria or hematuria Musculoskeletal Musculoskeletal: Denies arthralgias, myalgias or neck pain Hematologic/Lymphatic Hematologic/Lymphatic: Denies easy bleeding or easy bruising EXAM Physical Exam Const Vital Signs: 01/28/23 08:16 Temperature 97.5 F L Temperature Source Temporal Pulse Rate 88 Respiratory Rate 16 Blood Pressure 121/75 H Blood Pressure Mean 90 Pulse Ox 99 Oxygen Delivery Method Room Air Positive well nourished and well developed General Appearance ED: well developed and NAD; Negative for pallor HEENT Reports moist mucous membranes HEENT Narrative: Head is atraumatic and normocephalic. Ears are normal. Eyes PERRL and EOMs intact bilaterally General Eye ED: Negative for pale conjunctiva or scleral icterus Neck no lymphadenopathy, supple and no JVD Resp normal respiratory effort and clear to auscultation bilaterally Cardio regular rate, regular rhythm, S1 normal heart sound, no murmurs and no JVD GI normal to inspection, nondistended, normoactive bowel sounds, soft to palpation, non-tender, non-distended and no masses Back/Spine no CVA tenderness Lumbar Spine / Lower Back: Negative for lumbar spinal tenderness Extremity normal to inspection and full ROM General Extremety ED: Negative for edema or tenderness General Extremity: Negative for edema Neuro oriented x3, CN's II-XII intact bilaterally and no sensory deficits noted Sensorium / Orientation: alert Motor Exam: strength 5/5 throughout Psych mental status grossly normal Skin no rashes or lesions noted and no wounds General Skin Exam: Negative for jaundice or pallor MDM MDM MDM Narrative Medical decision making narrative: Patient presents with first trimester vaginal bleeding. Patient does have O- blood per review of prior records. Patient will require RhoGAM. Will obtain ultrasound to assess viability of . Patient most recent ended in a spontaneous . Patient denies orthostatic symptoms. Since patient is only spotting H&H was not obtained. History & Record Review Discussion w/independent historian: Patient Additional record(s) reviewed:: Prior inpatient record, Prior ED visit and Prior labs Lab Data Attestation: I reviewed the patient's lab results. Lab results narrative: H&H was added since patient is going to the OR. Labs: Laboratory Results - last 24 hr 01/28/23 09:00 HCG, Quant [id number] H Blood Type O NEGATIVE Antibody Screen NEGATIVE Radiography Diagnostic Testing: Clinical Impression(s) from Imaging Studies Obstetrics Ultrasound 01/28/23 08:30 IMPRESSION: No intrauterine gestation seen. Complex mass within the gestational sac with potential hematoma versus retained products of conception. Electronically Signed: Anderson Camp MD at 11:02 EDT , Transvaginal spine was reviewed by me. There is no fetus noted. Quantitative hCG was ordered and formal read by radiologist is pending. Will contact security shift supervisor after formal read by radiologist Treatment and Re-Evaluation Narrative: Case discussed Dr. Kojo Salazar. Patient was told that her ultrasound was abnormal. Plan is OR. Patient last ate at 0800. Discharge Plan Triage Chief Complaint: Vag Bld, Preg ED Provider: Brad Pineda Dx/Rx/DC Orders Clinical Impression: Incomplete spontaneous , Need for rhogam due to Rh negative mother Prescriptions: No Action NK Primary Care Provider: Care Physician,No Primary Referrals: Care Physician,No Primary [Primary Care Provider] - Disposition Disposition: Acute Care [facility]
[2023-01-28 10:41] LABS: hCG Titer Quant., Serum 13717 mIU/mL (1-3)
[2023-01-28 11:40] LABS: Hematocrit 40.8 % (37-47); Hemoglobin 14.2 g/dL (12.0-15.0)
--- NOTE | 2023-01-28 11:40 | PCM.HP.STD ---
HPI - General HPI Narrative CÉSAR ORTIZ, is a 33 F who presents with vaginal bleeding, supposed to be 13 weeks along but measuring 9 weeks. she denies fever, started cramping and hasn;t had many symptoms the last few weeks. she saw her CPM a few weeks ago but no heartbeat was confirmed she just talked to her. [facility] Home Medications NK 01/28/23 [History Last Taken Unknown] Allergy/AdvReac Type Severity Reaction Status Date / Time grey Allergy Hives Verified 09/23/21 10:19 Penicillins Allergy Hives Verified 09/23/21 10:19 amoxicillin AdvReac Hives Verified 09/23/21 10:19 Family History Grandfather Heart disease Diabetes Grandmother Breast cancer Grandmother Diabetes Grandfather Myocardial infarction Surgical History H/O wisdom tooth extraction Hx of tonsillectomy Social History adopted: No household members: family housing: house number of children: 1 current occupational status: employed 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 Smoking Status: Never smoker second hand exposure: No alcohol intake: current alcohol intake frequency: holidays/special occasions only substance use type: does not use seatbelt use: always do you feel safe at home: Yes additional social history: Judith De La Cruz 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 [employer] ROS Review of Systems ROS Unobtainable: due to mental status and other Constitutional Constitutional: Reports systems reviewed and no addt'l complaints, except as documented; Denies as per HPI, change in weight, fatigue, fever(s), malaise, weakness or other Eyes Eyes: Reports systems reviewed and no addt'l complaints, except as documented; Denies as per HPI, change in vision or other ENT HEENT: Reports as per HPI and dizziness; Denies dry mouth, headache(s), loss taste/smell, nasal congestion, nasal discharge, neck pain, sore throat or other Respiratory/Chest Respiratory/Chest: Reports systems reviewed and no addt'l complaints, except as documented Gastrointestinal Gastrointestinal: Reports systems reviewed and no addt'l complaints, except as documented and nausea; Denies vomiting Musculoskeletal Musculoskeletal: Reports systems reviewed and no addt'l complaints, except as documented; Denies back pain or joint pain Neurologic Neurologic: Reports systems reviewed and no addt'l complaints, except as documented Psychiatric Psychiatric: Reports systems reviewed and no addt'l complaints, except as documented Endocrine Endocrinology: Reports systems reviewed and no addt'l complaints, except as documented Hematologic/Lymphatic Hematologic/Lymphatic: Reports systems reviewed and no addt'l complaints, except as documented Vital Signs Vital Signs Vital Signs: 01/28/23 08:16 Temperature 97.5 F L Temperature Source Temporal Pulse Rate 88 Respiratory Rate 16 Blood Pressure 121/75 H Blood Pressure Mean 90 Pulse Ox 99 Oxygen Delivery Method Room Air Weight Weight: 140 lb Body Mass Index (BMI) 24.7 Physical Exam Const alert, oriented x3 and no apparent distress HEENT normocephalic Head and Scalp: atraumatic Eyes EOMs intact bilaterally and conjunctivae normal Neck full ROM, no lymphadenopathy, supple and thyroid normal General: trachea midline Lymph Lymphatic: no lymphadenopathy noted Resp normal respiratory effort, no retractions, no use of accessory muscles and clear to auscultation bilaterally Cardio regular rhythm GI normal to inspection, nondistended, normoactive bowel sounds, soft to palpation, non-distended and no masses Inspection: Negative for abdominal distention Back/Spine no CVA tenderness Extremity normal to inspection Skin no rashes or lesions noted Neuro moves all extremities and deep tendon reflexes 2+ bilaterally Motor Exam: clonus absent Psych mental status grossly normal Results Lab / Micro Data 01/28/23 09:00 Labs: Laboratory Results - last 24 hr 01/28/23 09:00: Hgb 14.2, Hct 40.8, HCG, Quant [id number] H, Blood Type O NEGATIVE, Antibody Screen NEGATIVE Radiology Impression Obstetrics Ultrasound 01/28/23 08:30 IMPRESSION: No intrauterine gestation seen. Complex mass within the gestational sac with potential hematoma versus retained products of conception. Electronically Signed: Anderson Camp MD at 11:02 EDT , Assessment & Plan Assessment/Plan (1) Need for rhogam due to Rh negative mother: (2) Incomplete spontaneous : (3) History of recurrent miscarriages: PLAN: Plan After discussing the patient's diagnosis and treatment plan options, patient wishes to proceed with surgical management. I have discussed with the patient the risks, benefits, and alternatives of the procedure which include but are not limited to risks of anesthesia, bleeding, infection, possible damage to bowel, bladder, or surrounding vasculature which could lead to additional surgery to evaluate any complications. Patient agrees to procedure and wishes to proceed. ACOG/uptodate references given for additional information regarding procedure.
--- NOTE | 2023-01-28 12:00 | POC_PTH ---
PATIENT: CÉSAR ORTIZ LOC: ED U#:[id number] AGE/SX: 33/F ROOM: RE01/28/[address]: Dr. Brad Pineda MD : 1990 BED: DIS: 01/28/2023 SPEC #: [id number] RECD: 01/28/23 14:03 STATUS: KYREE BARNES #: [id number] BRYAN: 01/28/23 12:[address]: Niesha Montero DEPT: SURGICAL PATHOLOGY RECD BY: Teresa Schmidt ENTERED: 01/31/23 07:44 SP TYPE: PROD CONC OTHR DR: Dr. Brad Pineda MD No Primary Care Phys Tissues: Product of conception, NOS Procedures: Surgery Specimen Level IV HEADER OPERATION: Suction dilation and curettage PRE-OP DIAGNOSIS: Incomplete spontaneous TISSUE SUBMITTED: Products of conception MICROSCOPIC DIAGNOSIS Endometrium, curettage: Chorionic villi, decidualized stroma and trophoblastic cells (products of conception). AM:viraj 02/01/2023 MICROSCOPIC DESCRIPTION Slides are reviewed. GROSS DESCRIPTION Received in fixative is one container labeled with the patient's name and designated products of conception. The specimen consists of multiple fragments of hemorrhagic soft tissue mixed with blood clot that in aggregate measure 10.0 x 10.0 x 2.5 cm. tissue is not identified. The specimen is totally submitted in one cassette. / SJ:viraj 01/31/2023 TC:5 CPT: 96404
--- NOTE | 2023-01-28 12:29 | DCINST_ITS ---
Discharge Instructions Diet Discharge Diet: No restrictions Activity Discharge Activity: Return to Normal Activity, May Shower and May Take a Tub Bath (after 1 week) May resume sexual activity in: 1-2 weeks Weight Bearing Status: Weight bearing as tolerated Lifting Restrictions: none Dressing / Incision Call your doctor if you observe: Fever of 101 or Higher, Using more than 1 pad per hour, Shortness of breath and Uncontrolled pain Follow Up Care Please Follow Up With: Niesha Montero MD When: Call [phone] to schedule appointment. Test Results: Test results from this visit will be discussed in further detail at your follow- up appointment, if applicable. Discharge Plan Dx/Rx/DC Orders Clinical Impression: Incomplete spontaneous , Need for rhogam due to Rh negative mother Disposition Disposition: Acute Care [facility]
--- NOTE | 2023-01-28 12:29 | PCM.OPRPT ---
Problems Associated Problem List Diagnoses (1) History of recurrent miscarriages: (2) Need for rhogam due to Rh negative mother: (3) Incomplete spontaneous : Report of Operation Date of Procedure: 01/28/23 Pre-Operative Diagnosis: see problem list Post-Operative Diagnosis: same Surgery/Procedure Performed:: Suction dilation and curettage Description of Surgical Findings:: no FHT present, Nonviable 13 weeks measuring 9 Surgeon: Niesha Montero director global strategic publisher sales: None Type of Anesthesia: Local MAC Special Medications: none Specimen's removed: POC Drains: none Estimated Blood Loss (mL): 200 Fluids Replaced: crystalloid Description of Procedure: Patient was taken to the operating room and placed under MAC local anesthesia. She was prepped and draped in the normal sterile fashion the dorsal lithotomy position. Bladder was drained of clear urine and anterior lip of the cervix was grasped and the uterus sounded to 11. Cervix was progressively dilated to allow passage of a 11mm suction curette. Progressive passes were made removing the retained products of conception without complication. Sharp curettage confirmed complete removal of the retained products. cytotec given rectally All instruments were removed from the vagina and excellent hemostasis was noted and the patient was taken to recovery in stable condition. Grafts/Implants Used: none Complications none Admit VTE Documentation VTE Present on Admission: No VTE Mechan Device Prophylaxis: SCD's Procedures Urinary/Genital 52xxx-59xxx: 55127 Trmt of incomplete Ab, any TM
[2023-01-28] MEDS: Lactated Ringers 1,000 ML 15 ML IV (12:30)
[2023-01-28] MEDS: miSOPROStol 200 MCG Tablet (13:00)
[2023-01-28] MEDS: miSOPROStol 200 MCG Tablet 800 MCG RC (13:00)
[2023-01-28 13:07] VITALS: BP 116/68; BP 121/75; PULSE 114; RESP 16; TEMP 36.6; O2SAT 98
[2023-01-28 13:15] VITALS: BP 111/70; BP 121/75; PULSE 87; RESP 16; O2SAT 100
[2023-01-28 13:30] VITALS: BP 108/60; BP 121/75; PULSE 73; RESP 16; O2SAT 98
[2023-01-28 13:43] VITALS: BP 105/69; BP 121/75; PULSE 72; RESP 16; TEMP 37.4; O2SAT 99
[2023-01-28] MEDS: Doxycycline 100 MG CAPSULE PO (14:04)
[2023-01-28 14:15] VITALS: BP 108/75; BP 121/75; PULSE 76; RESP 16; TEMP 37.1; O2SAT 100
== END 2023-01-28 14:24 | disposition home or self-care (01) ==
PROVIDERS: Obstetrics & Gynecology; Emergency Provider Emergency Medicine; Visit Provider Emergency Medicine
DX: O03.4 Incomplete spontaneous abortion without complication (principal)
CPT/HCPCS: 59812; 01965; 76817; 84702; 85014; 85018; 86850; 86900; 86901; 88305; 96372; 99282; J7120; A4216; J2405; J2790

== ENCOUNTER → 2023-07-07 | Outpatient (CLI) | payer OTHER, SELFPAY ==
--- OUTSIDE RECORDS SUMMARY | 2023-07-07 10:23 | XMS RPT_ITS | CCD ---
Author Name Unknown Address [address] [place] [id number] Organization [facility] Care Team Providers Care Stage Technician Name Role Phone Monica Dyson Unavailable Unavailable DysonMonica Unavailable Unavailable DysonMonica M Unavailable Unavailable DysonMonica M Unavailable Unavailable Monica Dyson M Unavailable Unavailable Monica Dyson M Unavailable Unavailable YOVANNY SOSA Unavailable Unavailable Monica Dyson Unavailable Unavailable Problems Problem Classification Problem Date Documented Date Episodic/Chronic Medical examination/evaluatio n (2 sources) Encounter for gynecological examination (general) (routine) without abnormal findings; Translations: [Encounter for gynecological examination (general) (routine) without abnormal findings] Onset: 10-21-2017 Episodic Unclassified (2 sources) Encounter for screening for malignant neoplasm of cervix; Translations: [Encounter for screening for malignant neoplasm of cervix] Onset: 10-21-2017 Episodic Results Test Name Value Interpretation Reference Range Facil ity Encounters Encounter Date Encounter Type Care Provider Facility Start: 12-21-2017 End: 12-22-2017 Patient encounter YOVANNY SOSA [facility] Start: 11-25-2017 End: 11-30-2017 Patient encounter Monica Dyson [facility] Start: 10-21-2017 End: 10-26-2017 Patient encounter Monica Westfall [place] [facility] Start: 10-21-2017 End: 10-26-2017 Patient encounter Monica Dyson [facility] Payers Date Payer Category Payer Unknown [id number] Summary Purpose Family History No Family History Records Found Advance Directives No Advanced Directives Records Found Additional Source Comments INFORMATION SOURCE (unrecogn ized section and content) FOR RECORDS PERTAINING TO PATIENTS WHO ARE OR HAVE BEEN ENROLLED IN A CHEMICAL DEPENDENCY/SUBSTANCEABUSE PROGRAM, SOME INFORMATION MAY BE OMITTED. This clinical summary was aggregated from multiple sources. Caution should be exercised in using it in the provision of clinical care. This summary normalizes information from multiple sources, and as a consequence, information in this document may materially change the coding, format and clinical context of patient data. In addition, data may be omitted in some cases. CLINICAL DECISIONS SHOULD BE BASED ON THE PRIMARY CLINICAL RECORDS. [facility] [facility]. provides no warranty or guarantee of the accuracy or completeness of information in this document.
[2023-07-07 11:45] LABS: hCG Titer Quant., Serum 36 mIU/mL (1-3)
== END | disposition home or self-care (01) ==
LOC: LAB 09:35
PROVIDERS: Referring Provider Advanced Practice Midwife; Visit Provider Advanced Practice Midwife
DX: O26.20 Pregnancy care for patient with recurrent pregnancy loss, unspecified trimester (principal); O09.299 Supervision of pregnancy with other poor reproductive or obstetric history, unspecified trimester; Z3A.00 Weeks of gestation of pregnancy not specified
CPT/HCPCS: 36415; 84702

== ENCOUNTER → 2023-07-09 | Outpatient (CLI) | payer OTHER, SELFPAY ==
--- OUTSIDE RECORDS SUMMARY | 2023-07-09 08:14 | XMS RPT_ITS | CCD ---
Author Name Unknown Address [address] [place] [id number] Organization [facility] Care Team Providers Care Personal Development Educator Name Role Phone Mnoica Dyson Unavailable Unavailable DysonMonica Unavailable Unavailable DysonMonica [...] [place] Payers Date Payer Category Payer Unknown [id number] Summary Purpose Family History No Family History [...] BE BASED ON THE PRIMARY CLINICAL RECORDS. [facility] [employer] [facility]. provides no warranty or guarantee of the accuracy or completeness of information in this document.
[2023-07-09 09:02] LABS: hCG Titer Quant., Serum 117 mIU/mL (1-3)
== END | disposition home or self-care (01) ==
LOC: LAB 08:03
PROVIDERS: Referring Provider Advanced Practice Midwife; Visit Provider Advanced Practice Midwife
DX: O09.299 Supervision of pregnancy with other poor reproductive or obstetric history, unspecified trimester (principal); O26.20 Pregnancy care for patient with recurrent pregnancy loss, unspecified trimester; Z3A.00 Weeks of gestation of pregnancy not specified
CPT/HCPCS: 36415; 84702

== ENCOUNTER → 2023-08-12 | Outpatient (CLI) | payer OTHER, SELFPAY ==
[2023-08-12 15:27] LABS: Absolute Lymphocyte Count 1.83 X10^3/uL (0.83-4.51); Absolute Neutrophil Count 4.1 X10^3/uL (2.0-7.7); Basophil# 0.02 X10^3/uL; Basophil% 0.3 % (0-1); Eosinophil# 0.06 X10^3/uL; Hematocrit 38.8 % (37-47); Lymphocyte # 1.83 X10^3/ul (0.83-4.51); Lymphocyte % 29.1 % (19-41); Mean Corp Hgb Conc 36.1 g/dL (32-36); Mean Corpuscular Volume 88.8 fL (81-99); Monocyte% 4.8 % (0-10); NRBC Flagged by Analyzer 0 % (0-5); Neutrophil # 4.07 X10^3/uL (2.7-7.7); Neutrophil % 64.6 % (47-70); Platelet Count 205 K/mm3 (150-450); RBC Distribution Width CV 11.9 % (11.6-14.6); RBC Distribution Width SD 38.4 fl (35.1-43.9); Red Blood Count 4.37 M/mm3 (4.2-5.4); White Blood Count 6.3 K/mm3 (4.4-11.0)
[2023-08-12 16:51] LABS: HIV - WCH Non-Reactive (Nonreactive); Hepatitis B Surface Antigen Non-Reactive (Nonreactive); Hepatitis C Antibody Non-Reactive (Nonreactive); Rubella IgG Reactive (Nonreactive); Syphilis Antibodies Non-reactive
[2023-08-16 03:07] LABS: Chlamydia By Nucleic Acid AMP Negative (Negative); Gonococcus By Nucleic Acid AMP Negative (Negative)
[2023-08-17 05:07] LABS: Anti-Cardiolipin Ab, IgG, Qn < 9 GPL U/mL (0-14); Anti-Cardiolipin Ab, IgM, Qn < 9 MPL U/mL (0-12); Beta-2-Glycoprotein I IgA <9 (0-25); Beta-2-Glycoprotein I IgG <9 (0-20); Beta-2-Glycoprotein I IgM <9 (0-32); Dilute Prothrombin Time (dPT) 37.1 sec (0.0-47.6); Dilute Russell Viper Venom 36.8 sec (0.0-47.0); Interpretation Comment: (.); PTT-LA 36.7 sec (0.0-43.5); Thrombin Time 17.9 sec (0.0-23.0)
== END | disposition home or self-care (01) ==
PROVIDERS: Obstetrics & Gynecology; Referring Provider Advanced Practice Midwife; Visit Provider Advanced Practice Midwife
DX: O26.20 Pregnancy care for patient with recurrent pregnancy loss, unspecified trimester (principal); Z3A.00 Weeks of gestation of pregnancy not specified
CPT/HCPCS: 36415; 85025; 86146; 86147; 86703; 86762; 86780; 86803; 86850; 86900; 86901; 87086; 87340; 87491; 87591